=== PATIENT | male | born 1980 | race Two or more races ===

== ENCOUNTER 2019-12-25 08:14 | Emergency (ER) | payer MEDICAID ==
[~2019-12-25] VITALS: Ht 167.6 cm; Wt 91.0 kg
[2019-12-25 09:19] VITALS: BP 138/89
== END 2019-12-25 09:21 | disposition home or self-care (01) ==
LOC: ER 08:14
DX: J02.9 Acute pharyngitis, unspecified (principal); F17.290 Nicotine dependence, other tobacco product, uncomplicated; F15.10 Other stimulant abuse, uncomplicated
CPT/HCPCS: 99281

== ENCOUNTER 2019-12-26 16:26 | Emergency (ER) | payer MEDICAID ==
[~2019-12-26] VITALS: Ht 170.2 cm; Wt 89.0 kg
[2019-12-26] MEDS ORDERED: DIPHENHYDRAMINE 25MG CAPSULE PO ONE (16:45)
[2019-12-26] MEDS ORDERED: IBUPROFEN 600MG TABLET PO ONE (16:45)
[2019-12-26 17:40] VITALS: BP 106/83
== END 2019-12-26 17:46 | disposition home or self-care (01) ==
LOC: ER 16:26
DX: K12.2 Cellulitis and abscess of mouth (principal); F15.10 Other stimulant abuse, uncomplicated
CPT/HCPCS: 99283